=== PATIENT | male | born 1990 | race Two or more races ===

== ENCOUNTER 2019-09-01 01:43 | Emergency (ER) | payer SELFPAY ==
[2019-09-01] MEDS ORDERED: ONDANSETRON HCL INJ/PF 4 MG/2 ML SDV IV ONE (02:31)
[2019-09-01] MEDS ORDERED: NORMAL SALINE 1000 ML 1,000 ML IV ONE ×2 (02:31→03:32)
--- NOTE | 2019-09-01 02:34 | ER Document Report ---
ED General - General Chief Complaint: Nausea Stated Complaint: POSS ALCOHOL POISONING Time Seen by Provider: 09/01/19 02:18 Notes: Patient is a 29-year-old male that comes emergency department for chief complaint of feeling fatigued, feeling nauseated, and feeling "generally off". He states that yesterday he had more alcohol than usual (he had 3 mateo's hard lemonade and "about a cup" of liquor), he also states that during the day he spent time lifting a doorway. He states that he thought he was okay until this evening when he became extremely fatigued and started feeling nauseated. He states he has some general tightness in his back but he denies specific back pain, he denies abdominal pain, chest pain, shortness of breath, headache, vomiting, diarrhea. He admits to regular alcohol, smokes, denies recreational drugs. Denies any medications other than Lexapro and denies any history other than anxiety/depression. TRAVEL OUTSIDE OF THE [place] IN LAST 30 DAYS: No - Related Data Allergies/Adverse Reactions: No Known Allergies Allergy (Verified 09/01/19 01:52) Past Medical History - General Information source: Patient - Social History Smoking Status: Never Smoker Chew tobacco use (# tins/day): No Frequency of alcohol use: 2-3 daily Drug Abuse: None Lives with: Family Family History: Reviewed & Not Pertinent Patient has suicidal ideation: No Patient has homicidal ideation: No - Medical History Medical History: Negative Surgical Hx: Negative - Immunizations Immunizations up to date: Yes Hx Diphtheria, Pertussis, Tetanus Vaccination: Yes Review of Systems - Review of Systems Constitutional: See HPI EENT: No symptoms reported Cardiovascular: No symptoms reported Respiratory: No symptoms reported Gastrointestinal: No symptoms reported Genitourinary: No symptoms reported Male Genitourinary: No symptoms reported Musculoskeletal: See HPI Skin: No symptoms reported Hematologic/Lymphatic: No symptoms reported Neurological/Psychological: No symptoms reported Physical Exam - Vital signs Vitals: Temp Pulse Resp BP Pulse Ox 97.8 F 73 18 151/79 H 97 09/01/19 01:49 09/01/19 01:49 09/01/19 01:49 09/01/19 01:49 09/01/19 01:49 - Notes Notes: GENERAL: Alert, interacts well. No acute distress. HEAD: Normocephalic, atraumatic. EYES: Pupils equal, round, and reactive to light. Extraocular movements intact. ENT: Oral mucosa very dry, tongue midline. Oropharynx unremarkable. Airway patent. NECK: Full range of motion. Supple. Trachea midline. LUNGS: Clear to auscultation bilaterally, no wheezes, rales, or rhonchi. No respiratory distress. HEART: Regular rate and rhythm. No murmur ABDOMEN: Soft, non-tender. Non-distended. Bowel sounds present in all 4 quadrants. GENITOURINARY: Deferred EXTREMITIES: Moves all 4 extremities spontaneously. No edema, normal radial and dorsalis pedis pulses bilaterally. No cyanosis. BACK: no cervical, thoracic, lumbar midline tenderness. No saddle anesthesia, no rmal distal neurovascular exam. Moves all extremities in full range of motion. NEUROLOGICAL: Alert and oriented x3. Normal speech. Cranial nerves II through XII grossly intact. PSYCH: Normal affect, normal mood. SKIN: Warm, dry, normal turgor. No rashes or lesions noted. Course - Re-evaluation Re-evalutation: Patient has no muscle spasms or rigidity, he is not tachycardic, he is alert and well-appearing. CBC unremarkable, chemistry unremarkable except for mildly elevated alk phos and elevated creatinine kinase in the 600s. Patient does have evidence of small amount of myoglobin in the urine. Patient was given 2 L normal saline boluses. Afterwards he states he feels much better. I discussed details at length. Discussed precautions to avoid going into rhabdomyolysis, patient states he will avoid alcohol or dehydrating substances, drink plenty fluids, and rest. He was provided with work-release. Discussed follow-up and return precautions. Patient and family state understanding and agreement. - Vital Signs Vital signs: Temp Pulse Resp BP Pulse Ox 98.4 F 81 18 126/57 H 98 09/01/19 05:26 09/01/19 05:26 09/01/19 05:26 09/01/19 05:26 09/01/19 05:26 - Laboratory Result Diagrams: 09/01/19 02:47 09/01/19 02:47 Laboratory results interpreted by me: 09/01/19 09/01/19 02:47 04:35 Alkaline Phosphatase 144 H Creatine Kinase 604 H Urine Blood SMALL H Discharge - Discharge Clinical Impression: Nausea, Body aches, Elevated CK Fatigue Qualifiers: Fatigue type: unspecified Qualified Code(s): R53.83 - Other fatigue Condition: Stable Disposition: HOME, SELF-CARE Additional Instructions: Your evaluation is consistent with symptoms from early rhabdomyolysis. You have been treated for this, continue treatment by resting, staying in a colon requirement, drinking plenty fluids. After the first 2 or 3 days gradually resume normal activity. Avoid alcohol or dehydrating substances especially during the next several days. Follow close with primary care for recheck and additional management. Return if you worsen including dark urine, inability to urinate, severe muscle cramping, vomiting, or any other concerning or worsening symptoms. Forms: Return to Work
[2019-09-01 03:05] LABS: ABSOLUTE EOSINOPHILS # (AUTO) 0.1 10^3/uL (0.0-0.6); ABSOLUTE LYMPHOCYTES (AUTO) 2.3 10^3/uL (0.5-4.7); ABSOLUTE MONOCYTES (AUTO) 0.9 10^3/uL (0.1-1.4); ABSOLUTE NEUT (AUTO) 4.3 10^3/uL (1.7-8.2); BASOPHILS % (AUTO) 0.5 % (0-2); EOSINOPHILS % (AUTO) 1.1 % (0-6); HEMATOCRIT 46.7 % (37.9-51.0); HEMOGLOBIN 15.9 g/dL (13.5-17.0); LYMPHOCYTES % (AUTO) 30.4 % (13-45); MEAN CORPUSCULAR VOLUME 94 fl (80-97); MONOCYTES % (AUTO) 11.4 % (3-13); PLATELET COUNT 190 10^3/uL (150-450); RED BLOOD COUNT 4.96 10^6/uL (4.35-5.55); RED CELL DISTRIBUTION WIDTH 12.8 % (11.5-14.0); SEGMENTED NEUTROPHILS % (AUTO) 56.6 % (42-78); TOTAL CELLS COUNTED % (AUTO) 100 %; WHITE BLOOD COUNT 7.6 10^3/uL (4.0-10.5)
[2019-09-01 03:23] LABS: ALBUMIN 4.4 g/dL (3.5-5.0); ALKALINE PHOSPHATASE 144 U/L (38-126); ANION GAP 9 (5-19); ASPARTATE AMINO TRANSFERASE 35 U/L (17-59); BILIRUBIN,DIRECT 0.1 mg/dL (0.0-0.4); BLOOD UREA NITROGEN 13 mg/dL (7-20); CALCIUM 9.4 mg/dL (8.4-10.2); CARBON DIOXIDE 28 mmol/L (22-30); CHLORIDE 102 mmol/L (98-107); CREATINE KINASE 604 U/L (55-170); GLUCOSE 94 mg/dL (75-110); POTASSIUM 4.1 mmol/L (3.6-5.0); TOTAL PROTEIN 7.5 g/dL (6.3-8.2)
[2019-09-01 05:09] LABS: APPEARANCE,URINE CLEAR; BILIRUBIN,URINE NEGATIVE (NEGATIVE); COLOR,URINE STRAW; GLUCOSE, URINE NEGATIVE (NEGATIVE); KETONES,URINE NEGATIVE (NEGATIVE); LEUKOCYTE ESTERASE,URINE NEGATIVE (NEGATIVE); NITRITE,URINE NEGATIVE (NEGATIVE); PROTEIN,URINE NEGATIVE (NEGATIVE); URINE SPECIFIC GRAVITY 1.006; UROBILINOGEN,URINE NEGATIVE mg/dL (<2.0)
[2019-09-01 05:28] VITALS: BP 126/57
== END 2019-09-01 05:28 | disposition home or self-care (01) ==
LOC: ER 01:43
DX: R11.0 Nausea (principal); M79.10 Myalgia, unspecified site; R53.83 Other fatigue; R79.89 Other specified abnormal findings of blood chemistry
CPT/HCPCS: 99283; 96361; 96374; 36415; 82550; 83690; 85025; 80053; 81001; J2405; J7030